=== PATIENT | female | born 1940 | race Caucasian/White ===

== ENCOUNTER 2018-11-25 02:29 | Observation (INO) | payer MEDICARE ==
[2018-11-25] MEDS ORDERED: metroNIDAZOLE 500 MG/100 ML BAG ONE (03:02)
[2018-11-25] MEDS ORDERED: Ondansetron ODT 4 MG TAB SL PRN (04:57)
[2018-11-25] MEDS ORDERED: Ondansetron PF 4 MG/2 ML Vial IVP PRN (04:57)
[2018-11-25] MEDS ORDERED: clonazePAM 0.5 MG TAB PO PRN (09:52)
[2018-11-25] MEDS ORDERED: cloNIDine 0.1 MG TAB PO PRN (09:53)
[2018-11-25] MEDS ORDERED: Benzonatate 100 MG CAP PO PRN (09:53)
[2018-11-25] MEDS ORDERED: Nitroglycerin 0.4 MG TAB (25 Tab Bottle) SL PRN (09:53)
[2018-11-25] MEDS ORDERED: Acetaminophen 500 MG TAB PO PRN (09:53)
[2018-11-25] MEDS ORDERED: Acetaminophen 650 MG Suppository PR PRN (09:53)
[2018-11-25] MEDS ORDERED: Ondansetron ODT 4 MG TAB PO PRN (09:53)
[2018-11-25] MEDS ORDERED: Senokot S 8.6-50 MG TAB PO PRN (09:53)
[2018-11-25] MEDS ORDERED: Bisacodyl 5 MG TAB PO PRN (09:53)
[2018-11-25] MEDS ORDERED: Diabetic Tussin 200 MG/10 ML UDCUP PO PRN (09:53)
[2018-11-25] MEDS ORDERED: hydrALAZINE 20 MG/ML VIAL SLOW IVP PRN (09:53)
[2018-11-25] MEDS ORDERED: Acetaminophen 325 MG TAB PO PRN (10:36)
[2018-11-25 10:42] LABS: #Basophils 0.1 thou/uL (0.0-0.2); #Lymphocytes 0.6 thou/uL (1.20-3.40); #Neutrophils 10.4 thou/uL (1.40-6.50); %Basophils 0.6 % (0.0-1.0); %Eosinophils 0.1 % (0.0-10.0); %Monocytes 8.3 % (0.0-10.0); Hemoglobin 12.8 g/dL (12.0-16.0); Mean Corpuscular HGB CONC 32.3 g/dL (32.0-36.0); Mean Corpuscular Hemoglobin 30.3 pg (27.0-31.0); Mean Corpuscular Volume 93.8 fL (78.0-98.0); Mean Platelet Volume 8.8 fL (7.4-10.4); Platelet Count 320 thou/uL (130-400); RBC Distribution Width 13.2 % (11.5-14.5); Red Blood Cell (RBC) Count 4.24 mill/uL (4.20-5.40); White Blood Cell (WBC) Count 12.1 thou/uL (4.8-10.8)
[2018-11-25] MEDS ORDERED: Ciprofloxacin Lactate/D5W 200 MG in Premix Bag 1 BAG IVPB SCH (11:00)
[2018-11-25 11:05] LABS: ALT (SGPT) 16 U/L (8-55); AST (SGOT) 16 U/L (5-34); Albumin 3.1 g/dL (3.4-4.8); Alkaline Phosphatase 60 U/L (40-150); Anion Gap 9 mmol/L (10-20); BUN (Urea Nitrogen) 37 mg/dL (9.8-20.1); Bilirubin, Direct 0.3 mg/dL (0.1-0.3); Bilirubin, Total 0.6 mg/dL (0.2-1.2); Calc. Creatinine Clearance 38 mL/min (70-130); Calcium 8.2 mg/dL (7.8-10.44); Carbon Dioxide 27 mmol/L (23-31); Chloride 105 mmol/L (98-107); Estimated GFR-MDRD 40; Glucose 146 mg/dL (83-110); Lipase 5 U/L (8-78); Potassium 3.4 mmol/L (3.5-5.1); Protein, Total 4.9 g/dL (6.0-8.3); Sodium 138 mmol/L (136-145)
[2018-11-25] MEDS: Dextrose 5 %-0.45 % NaCl 1,000 ML IV SCH (11:47)
[2018-11-25] MEDS: metroNIDAZOLE 500 MG in Premix Bag 1 BAG IVPB SCH ×2 (11:47→19:11)
--- NOTE | 2018-11-25 12:11 | HP ---
PRIMARY CARE PHYSICIAN: Jonathan Chapa. CHIEF COMPLAINT: Abdominal pain, nausea, vomiting, and then diarrhea. HISTORY OF PRESENTING ILLNESS: Ms. Lou is a pleasant 78-year-old female with past medical history of hypertension as well as polycythemia, who presented to the emergency room with above-mentioned complaints. She initially presented to outside emergency room. History is mainly obtained by the patient herself and electronic medical records have been reviewed. Ms. Lou reports that she has been in her usual health up until yesterday afternoon when she ate [employer]. Nobody else ate the same food with her. Shortly about an hour after eating the [employer], she had three episodes of nonbilious, nonbloody vomiting followed by one diarrheal movement when the EMS was picking her up. It was severe. She had lots of gas before that associated with some pain. She denies any fever or chills. She reports that there was no blood in the diarrheal stool yesterday, but since she has appeared in the hospital, she has had one more episode of diarrhea and she has noticed some blood in there. She reports a similar episode about few years ago when she has eaten out in a restaurant. Other than that, she denies any health issues other than well-controlled blood pressure. She is on hydroxyurea for her polycythemia, which is also stable. In the emergency room in [facility] ER, she was found to have diverticulitis as found out on a CT scan. There was also a note that she had urinary tract infection and cholelithiasis without cholecystitis in the [place] emergency room. I do not have access to the reports. She was treated with ciprofloxacin and Flagyl and was transferred to our emergency room for further evaluation and care. In our emergency room upon presentation, she was hemodynamically stable with a blood pressure of 116/62 with a pulse of 89. Her temperature was 99.3. She was asymptomatic by the time she got to our ER and is now being admitted to Medicine Team for acute diverticulitis. Her symptoms have largely resolved and she is quite comfortable on my examination this morning. The patient denies any family history of colon cancer, stomach cancer. She denies any history of hematochezia or melena. She does report that she chokes often when eating food. She denies any sensation of "food sticking" in her throat. She reports that her son has similar issues. She has never had an EGD done and does not want one either at this time. PAST MEDICAL HISTORY: Hypertension. PAST SURGICAL HISTORY: Tonsillectomy. The patient has never had colonoscopy or EGD done. FAMILY HISTORY: Family history of diabetes in her sister. Otherwise, no family history of colon cancer or stomach cancer. No family history of coronary artery disease or stroke. ALLERGIES: NO KNOWN MEDICATION ALLERGIES. CURRENT HOME MEDICATIONS: 1. Hydroxyurea 500 mg daily. 2. Clonazepam 0.5 mg p.o. b.i.d. p.r.n. 3. Hydrochlorothiazide 25 mg daily. 4. Enalapril 20 mg daily. REVIEW OF SYSTEMS: A 14-point review of system is done. It is negative except for those mentioned in the history and physical. LABORATORY STUDIES: Labs are repeated here this morning and shows WBCs of 12.1 with 86% neutrophils. Serum chemistry showed potassium of 3.4, BUN 37, creatinine 1.30, blood sugar 146. Lipase is normal at 5. Urinalysis has been ordered and is pending at this time. CT scan according to the ER records showed left-sided diverticulitis and cholelithiasis without cholecystitis. PHYSICAL EXAMINATION: VITAL SIGNS: Most recent vital signs, temperature 98.4, pulse of 86, respirations 20, saturating 95% on room air, blood pressure 123/59. GENERAL: No acute distress. Lying comfortably in bed. Awake, alert, and oriented x3. HEENT: Mucous membrane is moist and pink. No oropharyngeal exudate or erythema. Head is normocephalic and atraumatic. Pupils are equal and reactive to light and accommodation. Extraocular movement intact. NECK: Supple without any lymphadenopathy, JVD, or bruit. CHEST: Clear to auscultation without any wheezing, rales, or rhonchi. HEART: Rate and rhythm is regular without any murmurs, rubs, or gallops. ABDOMEN: Soft, nontender, nondistended with positive bowel sounds. She has no rebound, guarding, or rigidity. No suprapubic tenderness. BACK: No CVA tenderness. EXTREMITIES: Free of any cyanosis, clubbing, or edema. NEUROLOGICAL: Examination is nonfocal. SKIN: Free of any rashes or bruises. Feels warm and dry to touch. PSYCHIATRIC: Normal affect. IMPRESSION AND PLAN: 1. Acute diverticulitis. The patient will be treated conservatively. She is clinically much better and seems like a mild episode. She will be treated with empiric IV antibiotics namely ciprofloxacin and metronidazole and will be kept n.p.o. until her symptoms completely resolve. She will be started on IV fluids for hydration purposes. She will be referred to Gastroenterology in the outpatient setting for non-emergent screening colonoscopy as well as endoscopy if indicated for EGD. She is currently hemodynamically stable. Monitor H and H though she does not have any significant GI bleed. 2. Hypokalemia. We will replace and recheck IV. 3. Leukocytosis. This is secondary to acute diverticulitis. Urinalysis will also be sent to rule out UTI. Even if she has a UTI, she will be covered by ciprofloxacin which is being given for diverticulitis. 4. Acute renal insufficiency. No baseline is available at this time. We will hold her Vasotec and give her IV fluids. Recheck kidney function in the morning. Avoid any nephrotoxic medications, hold hydrochlorothiazide as well. 5. Hypertension. Use p.r.n. antihypertensives and hold enalapril for acute renal insufficiency at this point. Restart once kidney function improves. Monitor closely. 6. History of polycythemia vera. We will continue her hydroxyurea while in the hospital. Her counts are stable at this time. 7. Code status, full code discussed with the patient. 8. DVT and GI prophylaxis. DISPOSITION: Ms. Lou is currently being admitted under observation status for acute diverticulitis. She is hemodynamically stable and her symptoms are already improving. Estimated length of stay at this time is less than two midnights. Further management will depend upon her clinical course. Job ID: [id number]
[2018-11-25] MEDS: Potassium Chloride 20 MEQ in Premix Bag 1 BAG IVPB SCH ×2 (13:59→15:35)
[2018-11-25 16:51] LABS: Bilirubin Small (Negative); Blood, Urine Large (Negative); Clarity TURBID (Clear); Glucose, Urine (Dipstick) Negative (Negative); Leukocyte Large (Negative); Nitrite Negative (Negative); Protein, Urine (Dipstick) 100 mg/dL (Neg-Trace); Specific Gravity, Urine 1.021 (1.002-1.036)
[2018-11-25 17:05] LABS: Pathc Cast-AUWi Flag 3.53 (0-2.49); Yeast-AUWi Flag 312.5 (0-25.0)
[2018-11-25 17:16] LABS: Bacteria/HPF 1+ HPF (None Seen); Hyaline Casts/LPF 0-3 HYALINE CAST LPF (0-3 Hyaline); Manual Microscopic Reviewed? No Path Casts Seen; Renal Epithelial 0-3 HPF (0-3); Transitional Epithelial 0-3 HPF (0-3); Yeast-All Forms None Seen HPF (None Seen)
[2018-11-25 17:17] LABS: Urine Culture Reflex No No
[2018-11-25] MEDS: Ciprofloxacin Lactate/D5W 200 MG in Premix Bag 1 BAG IVPB SCH (17:47)
[2018-11-25] MEDS ORDERED: Hydroxyurea 500 MG CAP PO SCH (18:30)
[2018-11-26] MEDS: Dextrose 5 %-0.45 % NaCl 1,000 ML IV SCH ×3 (01:39→20:42)
[2018-11-26] MEDS: metroNIDAZOLE 500 MG in Premix Bag 1 BAG IVPB SCH ×3 (02:52→20:48)
[2018-11-26] MEDS: Ciprofloxacin Lactate/D5W 200 MG in Premix Bag 1 BAG IVPB SCH ×2 (03:54→16:41)
[2018-11-26 08:22] LABS: #Eosinphils 0.1 thou/uL (0.0-0.7); #Lymphocytes 0.7 thou/uL (1.20-3.40); #Monocytes 0.7 thou/uL (0.11-0.59); #Neutrophils 7.1 thou/uL (1.40-6.50); %Basophils 0.5 % (0.0-1.0); %Eosinophils 1.7 % (0.0-10.0); %Lymphocytes 8.5 % (21.0-51.0); %Monocytes 7.6 % (0.0-10.0); %Neutrophils 81.8 % (42.0-75.0); Hemoglobin 11.5 g/dL (12.0-16.0); Mean Corpuscular HGB CONC 31.5 g/dL (32.0-36.0); Mean Corpuscular Hemoglobin 30.6 pg (27.0-31.0); Mean Corpuscular Volume 97.3 fL (78.0-98.0); Mean Platelet Volume 8.6 fL (7.4-10.4); Platelet Count 266 thou/uL (130-400); RBC Distribution Width 13.2 % (11.5-14.5); Red Blood Cell (RBC) Count 3.75 mill/uL (4.20-5.40); White Blood Cell (WBC) Count 8.7 thou/uL (4.8-10.8)
[2018-11-26 08:41] LABS: Anion Gap 8 mmol/L (10-20); BUN (Urea Nitrogen) 29 mg/dL (9.8-20.1); Calc. Creatinine Clearance 49 mL/min (70-130); Carbon Dioxide 26 mmol/L (23-31); Chloride 105 mmol/L (98-107); Estimated GFR-MDRD 53; Glucose 107 mg/dL (83-110); Potassium 3.4 mmol/L (3.5-5.1); Sodium 136 mmol/L (136-145)
[2018-11-26] MEDS ORDERED: Non-Formulary Item 1 EACH (Enalapril Maleate [Enalapril Maleate] 20 MG) PO SCH (09:00)
[2018-11-26] MEDS: Hydroxyurea 500 MG CAP PO SCH (09:08)
[2018-11-26] MEDS ORDERED: Potassium Chloride 40 MEQ in Premix Bag 1 BAG IVPB SCH (09:30)
[2018-11-26] MEDS: Potassium Chloride 20 MEQ in Premix Bag 1 BAG IVPB SCH ×2 (10:53→15:13)
--- NOTE | 2018-11-26 16:02 | PDOC.PN ---
- Subjective Encounter Start Date: 11/26/18 Encounter Start Time: 16:00 Patient lying in bed, she reports feeling better today, but still complaining of left sided abdominal pain. She denies chest pain, palpitation, or shortness of breath. She remains on cipro and flagyl. She was advanced to regular diet, but noticed some abdominal pain with this. - Objective Resuscitation Status - Order Detail: 11/25/18 11:16 Resuscitation Status Routine Resuscitation Status: FULL: Full Resuscitation Discussed with: discussed w pt TETE Reviewed: Yes Vital Signs & Weight: Vital Signs (12 hours) Temp Pulse Resp BP Pulse Ox 11/26/18 11:35 98.1 F 74 18 160/70 H 96 11/26/18 07:58 98.1 F 77 16 112/55 L 94 L Weight Weight 147 lb 11.2 oz I&O: 11/25/18 11/26/18 11/27/18 06:59 06:59 06:59 Intake Total 2034 200 Output Total 600 Balance 1434 200 Result Diagrams: 11/26/18 08:12 11/26/18 08:12 Radiology Reviewed by me: Yes Phys Exam - Physical Examination Constitutional: NAD HEENT: moist MMs, oral pharynx no lesions Neck: no nodes, supple Respiratory: no wheezing, clear to auscultation bilateral Cardiovascular: RRR, no rub Gastrointestinal: soft, positive bowel sounds Mild tenderness to palpation on left side Musculoskeletal: no edema, pulses present Neurological: non-focal, moves all 4 limbs Lymphatic: no nodes Psychiatric: A&O x 3 Skin: no rash, cap refill <2 seconds Dx/Plan (1) Diverticulitis Code(s): K57.92 - DVTRCLI OF INTEST, PART UNSP, W/O PERF OR ABSCESS W/O BLEED Status: Acute (2) Hypokalemia Code(s): E87.6 - HYPOKALEMIA Status: Acute (3) Hypertension Code(s): I10 - ESSENTIAL (PRIMARY) HYPERTENSION Status: Acute - Plan cont current plan of care, continue antibiotics * Continue cipro and flagyl, WBC improved. * She appears to still be tender on left side, therefore with go back to liquid diet for now * Continue other home medications * BEAR resolved * Replace potassium and recheck bmp in am * Hopeful for discharge home with oral abx in the next 1-2 days
[2018-11-26] MEDS ORDERED: Potassium Chloride 20 MEQ TAB PO SCH (16:15)
[2018-11-27] MEDS: metroNIDAZOLE 500 MG in Premix Bag 1 BAG IVPB SCH (03:22)
[2018-11-27] MEDS: Ciprofloxacin Lactate/D5W 200 MG in Premix Bag 1 BAG IVPB SCH (04:40)
[2018-11-27] MEDS: Hydroxyurea 500 MG CAP PO SCH (09:16)
[2018-11-27 10:14] LABS: #Eosinphils 0.3 thou/uL (0.0-0.7); #Lymphocytes 0.7 thou/uL (1.20-3.40); #Monocytes 0.4 thou/uL (0.11-0.59); #Neutrophils 5.6 thou/uL (1.40-6.50); %Basophils 0.4 % (0.0-1.0); %Eosinophils 4.3 % (0.0-10.0); %Lymphocytes 10.1 % (21.0-51.0); %Monocytes 5.8 % (0.0-10.0); %Neutrophils 79.4 % (42.0-75.0); Hemoglobin 12.3 g/dL (12.0-16.0); Mean Corpuscular HGB CONC 32.3 g/dL (32.0-36.0); Mean Corpuscular Hemoglobin 30.9 pg (27.0-31.0); Mean Corpuscular Volume 95.5 fL (78.0-98.0); Mean Platelet Volume 8.2 fL (7.4-10.4); Platelet Count 294 thou/uL (130-400); Red Blood Cell (RBC) Count 3.98 mill/uL (4.20-5.40); White Blood Cell (WBC) Count 7.1 thou/uL (4.8-10.8)
[2018-11-27 10:32] LABS: Anion Gap 9 mmol/L (10-20); BUN (Urea Nitrogen) 14 mg/dL (9.8-20.1); Calc. Creatinine Clearance 59 mL/min (70-130); Calcium 8.7 mg/dL (7.8-10.44); Carbon Dioxide 27 mmol/L (23-31); Chloride 106 mmol/L (98-107); Estimated GFR-MDRD 65; Glucose 109 mg/dL (83-110); Potassium 4.2 mmol/L (3.5-5.1); Sodium 138 mmol/L (136-145)
[2018-11-27] MEDS: Dextrose 5 %-0.45 % NaCl 1,000 ML IV SCH (10:41)
[2018-11-27 12:01] VITALS: BP 146/64; TEMP 97.6
[2018-11-27] MEDS ORDERED: metroNIDAZOLE 500 MG TAB PO SCH (15:00)
[2018-11-27] MEDS ORDERED: Ciprofloxacin 500 MG TAB PO SCH (20:00)
[2018-11-27] MEDS ORDERED: Cipro 250 MG TAB PO SCH (21:00)
== END 2018-11-27 13:19 | disposition home or self-care (01) ==
LOC: ERS 02:29 → 2SW 02:56
PROVIDERS: ADMIT Hospitalist; ATTEND Hospitalist
DX: K57.92 Diverticulitis of intestine, part unspecified, without perforation or abscess without bleeding (principal); E87.6 Hypokalemia; D72.829 Elevated white blood cell count, unspecified; N28.9 Disorder of kidney and ureter, unspecified; I10 Essential (primary) hypertension; D45 Polycythemia vera; N39.0 Urinary tract infection, site not specified; K80.20 Calculus of gallbladder without cholecystitis without obstruction; Z79.899 Other long term (current) drug therapy
CPT/HCPCS: 80048 ×3; 80076; 81001; 83690; 85025 ×3; 96361 ×3; 96365; 96366 ×3; 96367 ×2; 96376; 97139 ×3; 99284; G0378 ×3; 36415; J0744; J3480; Q0162